=== PATIENT | female | born 1955 | race African-American/Black ===

== ENCOUNTER 2019-02-22 21:51 | Inpatient (IN) | payer OTHER ==
[~2019-02-22] VITALS: Ht 170.2 cm; Wt 53.1 kg
[2019-02-23 00:28] LABS: BASOPHILS % 0.7 % (0.0-2.0); EOSINOPHILS % 2.4 % (0.0-5.0); HEMATOCRIT. 31.5 % (36.0-48.0); HEMOGLOBIN. 10.5 g/dL (12.0-16.0); LYMPHOCYTES % 19.3 % (20.0-50.0); MEAN PLATELET VOLUME 7.9 fl (7.4-10.4); MONOCYTES % 12.4 % (2.0-8.0); NEUTROPHILS % 65.2 % (40.0-76.0); PLATELET 249 x1000/uL (130-400); RED CELL DISTRIBUTION WIDTH 18.7 % (11.6-14.6)
[2019-02-23 00:30] LABS: CHLORIDE 96 mEq/L (98-107)
[2019-02-23 08:00] VITALS: BP 168/104
[2019-02-23 10:00] VITALS: BP 168/104
[2019-02-23] MEDS ORDERED: NIFE90TA34 MT (10:32)
[2019-02-23] MEDS ORDERED: SUCR500T MT (10:32)
[2019-02-23] MEDS ORDERED: ACYC800T5 PO (10:32)
[2019-02-23] MEDS ORDERED: CARV12.545 MT (10:32)
[2019-02-23] MEDS ORDERED: PRED5DRO22 LEFTEYE (10:32)
[2019-02-23] MEDS ORDERED: ASPI-1158 MT (10:32)
[2019-02-23] MEDS ORDERED: FOLI0.4T2 MT (10:32)
[2019-02-23] MEDS ORDERED: TRIF7.5D5 LEFTEYE (10:32)
[2019-02-23 12:00] VITALS: BP 148/89
[2019-02-23] MEDS ORDERED: ACETAMINOPHEN 325MG TABLET PO PRN (15:00)
[2019-02-23] MEDS ORDERED: MAGNESIUM/ALUMINUM HYDROXIDE/SIMETHICONE 30ML UDC PO PRN (15:00)
[2019-02-23] MEDS ORDERED: DIPHENHYDRAMINE 50MG/ML VIAL IV PRN (15:00)
[2019-02-23] MEDS ORDERED: ACETAMINOPHEN 650MG SUPP PR PRN (15:00)
[2019-02-23] MEDS ORDERED: HYDROCODONE/ACETAMINOPHEN 5/325MG TABLET PO PRN (15:00)
[2019-02-23] MEDS ORDERED: LORAZEPAM 0.5MG TABLET PO PRN (15:00)
[2019-02-23] MEDS ORDERED: IPRATROPIUM/ALBUTEROL 0.5-3(2.5)MG/3ML NEB NEB PRN (15:00)
[2019-02-23] MEDS ORDERED: DOCUSATE SODIUM 100MG CAPSULE PO PRN (15:00)
[2019-02-23] MEDS ORDERED: GUAIFENESIN 200MG/10ML SUGAR FREE UDC PO PRN (15:00)
[2019-02-23] MEDS ORDERED: MECLIZINE 12.5MG TABLET PO PRN (15:30)
[2019-02-23] MEDS ORDERED: ONDANSETRON HCL 4MG/2ML INJ IV PRN (15:56)
[2019-02-23 16:00] VITALS: BP 163/104
[2019-02-23] MEDS ORDERED: NA PHOS,M-B/NA PHOS,DI-BA ENEMA 118ML PR PRN (16:00)
[2019-02-23 16:20] LABS: BG BASE EXCESS 3.7 mmol/L (-2.0-2.0); BG CARBOXYHEMOGLOBIN 0.3 % (0.5-1.5); BG DEOXYHEMOGLOBIN 3.5 % (0.0-5.0); BG FRACTION INSPIRED OXYGEN 21; BG HCO3 ACT 28.1 mmol/L (22.0-26.0); BG METHEMOGLOBIN 0.3 % (0.0-1.5); BG OXYGEN SATURATION 96.5 % (92.0-98.5); BG OXYHEMOGLOBIN 95.9 % (94.0-97.0); BG PH 7.444 (7.350-7.450); BG PO2 88.1 mmHg (75.0-100.0); BG SAMPLE SITE RIGHT RADIAL; BG TOTAL HEMOGLOBIN 10.2 g/dL (12.0-18.0); BG VENT MODE ROOM AIR
[2019-02-23 16:28] LABS: HEMATOCRIT. 29.8 % (36.0-48.0); MEAN CORPUSCULAR HEMOGLOBIN 30.6 pg (28.0-32.0); MEAN CORPUSCULAR VOLUME 90.9 fL (81.0-99.0); MEAN PLATELET VOLUME 7.4 fl (7.4-10.4); PLATELET 232 x1000/uL (130-400); RED BLOOD CELL COUNT 3.28 mill/uL (4.2-5.4)
[2019-02-23 16:34] LABS: PROTHROMBIN TIME 10.5 sec (9.6-11.0)
[2019-02-23 16:42] LABS: TOTAL IRON BINDING CAPACITY 159 ug/dL (250-450)
[2019-02-23] MEDS ORDERED: SUCROFERRIC OXYHYDROXIDE MT SCH (17:00)
[2019-02-23] MEDS ORDERED: TRIFLURIDINE LEFTEYE SCH (17:00)
[2019-02-23 17:40] LABS: PLATELET ESTIMATE NORMAL
[2019-02-23] MEDS ORDERED: ISOS60TA4 MT (18:08)
[2019-02-23] MEDS: PREDNISOLONE ACETATE 1% OPHTH DROPS 5ML LEFTEYE SCH ×2 (18:20→21:02)
[2019-02-23] MEDS: CARVEDILOL 12.5MG TABLET PO SCH (18:20)
[2019-02-23 20:00] VITALS: BP 170/98
[2019-02-23] MEDS: CLONIDINE 0.1MG TABLET PO PRN (21:03)
[2019-02-24] VITALS (8 sets, daily range): BP systolic 118–193; BP diastolic 86–115
[2019-02-24 01:12] LABS: CREATINE KINASE 69 IU/L (26-192)
[2019-02-24 01:13] LABS: CREATINE KINASE MB FRACTION < 1.0 ng/mL (0.5-3.6)
[2019-02-24] MEDS: CLONIDINE 0.1MG TABLET PO PRN ×2 (04:28→14:39)
[2019-02-24 07:57] LABS: HEMATOCRIT. 28.9 % (36.0-48.0); HEMOGLOBIN. 9.7 g/dL (12.0-16.0); MEAN CORPUSCULAR HEMOGLOBIN 30.3 pg (28.0-32.0); MEAN CORPUSCULAR VOLUME 90.4 fL (81.0-99.0); MEAN PLATELET VOLUME 7.7 fl (7.4-10.4); PLATELET 223 x1000/uL (130-400); RED BLOOD CELL COUNT 3.19 mill/uL (4.2-5.4); RED CELL DISTRIBUTION WIDTH 18.6 % (11.6-14.6)
[2019-02-24] MEDS ORDERED: MEDICATION NOT ON FORMULARY EA (Folic Acid 1 TAB) MT SCH (09:00)
[2019-02-24] MEDS ORDERED: ACYCLOVIR 800 MG PO SCH (09:00)
[2019-02-24 09:25] LABS: CREATINE KINASE 66 IU/L (26-192); LDL CHOLESTEROL 105 mg/dL (5-100)
[2019-02-24 09:26] LABS: HDL CHOLESTEROL 43 mg/dL (40-59); T4 FREE 1.18 ng/dL (0.76-1.46)
[2019-02-24 09:27] LABS: CREATINE KINASE MB FRACTION < 1.0 ng/mL (0.5-3.6)
[2019-02-24] MEDS: ACYCLOVIR 400 MG TABLET PO SCH (09:40)
[2019-02-24] MEDS: PREDNISOLONE ACETATE 1% OPHTH DROPS 5ML LEFTEYE SCH ×4 (09:41→21:05)
[2019-02-24] MEDS: SEVELAMER CARBONATE 800 MG TABLET PO SCH ×3 (09:42→18:48)
[2019-02-24] MEDS: FOLIC ACID 1MG TABLET PO SCH (09:42)
[2019-02-24] MEDS: ASPIRIN 81MG EC TABLET PO SCH (09:42)
[2019-02-24] MEDS: CARVEDILOL 12.5MG TABLET PO SCH ×2 (09:46→17:00)
[2019-02-24 11:31] LABS: PLATELET ESTIMATE NORMAL
[2019-02-24] MEDS ORDERED: LOSARTAN POTASSIUM 50 MG TABLET PO NR (14:45)
[2019-02-24 15:52] LABS: CLARITY URINE CLEAR (CLEAR); COLOR URINE YELLOW (YELLOW); KETONES URINE NEGATIVE (NEGATIVE); LEUKOCYTE ESTERASE URINE NEGATIVE (NEGATIVE); NITRITE URINE NEGATIVE (NEGATIVE); OCCULT BLOOD URINE TRACE (NEGATIVE); PROTEIN URINE 3+ (NEGATIVE); SPECIFIC GRAVITY URINE 1.007 (1.005-1.030); UROBILINOGEN URINE 0.2 E.U./dL (0.2-1.0)
[2019-02-24 16:29] LABS: *AMPHETAMINES SCREEN URINE NEGATIVE (NEGATIVE); *BARBITURATES SCREEN URINE NEGATIVE (NEGATIVE)
[2019-02-24 16:30] LABS: *BENZODIAZEPINES SCREEN URINE NEGATIVE (NEGATIVE); *COCAINE SCREEN URINE NEGATIVE (NEGATIVE); CANNABINOID URINE SCREEN NEGATIVE (NEGATIVE); METHADONE URINE SCREEN NEGATIVE (NEGATIVE); OPIATES URINE SCREEN NEGATIVE (NEGATIVE); PHENCYCLIDINE URINE SCREEN NEGATIVE (NEGATIVE)
[2019-02-24] MEDS ORDERED: MECLIZINE 12.5MG TABLET PO PRN (19:30)
[2019-02-25] VITALS (10 sets, daily range): BP systolic 156–199; BP diastolic 86–118
[2019-02-25] MEDS: CLONIDINE 0.1MG TABLET PO PRN ×2 (00:07→21:43)
[2019-02-25] MEDS: HYDRALAZINE 20MG/ML VIAL IV PRN ×3 (01:56→23:10)
[2019-02-25 05:07] LABS: HIV SCREEN 4G Non Reactive (Non Reactive)
[2019-02-25 07:24] LABS: HEMATOCRIT. 30.3 % (36.0-48.0); MEAN CORPUSCULAR HEMOGLOBIN 30.2 pg (28.0-32.0); MEAN CORPUSCULAR VOLUME 91.7 fL (81.0-99.0); PLATELET 181 x1000/uL (130-400); RED CELL DISTRIBUTION WIDTH 18.4 % (11.6-14.6)
[2019-02-25] MEDS: FOLIC ACID 1MG TABLET PO SCH (08:59)
[2019-02-25] MEDS: SEVELAMER CARBONATE 800 MG TABLET PO SCH ×3 (08:59→16:11)
[2019-02-25] MEDS: ACYCLOVIR 400 MG TABLET PO SCH (08:59)
[2019-02-25] MEDS: PREDNISOLONE ACETATE 1% OPHTH DROPS 5ML LEFTEYE SCH ×4 (08:59→21:43)
[2019-02-25] MEDS ORDERED: LOSARTAN POTASSIUM 50 MG TABLET PO SCH (09:00)
[2019-02-25] MEDS: ASPIRIN 81MG EC TABLET PO SCH (09:01)
[2019-02-25] MEDS: CARVEDILOL 12.5MG TABLET PO SCH ×2 (09:01→16:20)
[2019-02-25] MEDS ORDERED: SODIUM CHLORIDE 0.9% 250 ML IV ONE (11:15)
[2019-02-25 13:29] LABS: ATYPICAL LYMPHOCYTES 1
[2019-02-25 13:30] LABS: PLATELET ESTIMATE NORMAL
[2019-02-26] VITALS: BP 171/73
[2019-02-26 00:55] VITALS: BP 143/83
== END 2019-02-26 01:00 | DRG 70 ==
LOC: ER 21:51 → 7WST 02-23 04:47 → EDBEDREQTM 02-23 04:51 → EDBEDREQ 02-23 04:51 → ENRESERV 02-23 07:25
PROVIDERS: ADMIT Internal Medicine; ATTEND Internal Medicine
DX: G93.40 Encephalopathy, unspecified (principal); N18.6 End stage renal disease; E87.1 Hypo-osmolality and hyponatremia; I12.0 Hypertensive chronic kidney disease with stage 5 chronic kidney disease or end stage renal disease; G90.8 Other disorders of autonomic nervous system; I95.1 Orthostatic hypotension; D64.9 Anemia, unspecified; H54.62 Unqualified visual loss, left eye, normal vision right eye; Z85.841 Personal history of malignant neoplasm of brain; Z99.2 Dependence on renal dialysis; R27.0 Ataxia, unspecified; R73.9 Hyperglycemia, unspecified; E86.0 Dehydration
CPT/HCPCS: 36415; 36600; 70551; 71045; 80048; 80061; 80305; 81003; 82140; 82270; 82375; 82550; 82553; 82805; 83036; 83540; 83550; 83605; 84439; 84443; 84484; 86850; 86900; 87389; 93005; 93306; 93880; 93970; 95816; 97162; 99291; J0360

== ENCOUNTER 2019-07-12 11:37 | Inpatient (IN) | payer OTHER ==
[2019-07-12] VITALS (11 sets, daily range): BP systolic 118–139; BP diastolic 73–85
[~2019-07-12] VITALS: Ht 170.2 cm; Wt 58.5 kg
[~2019-07-12 11:37] MED LIST: ACYC800T5 PO; ASPI-1158 MT; CARV12.545 MT; FOLI0.4T2 MT; ISOS60TA4 MT; NIFE90TA60 MT; PRED5DRO22 LEFTEYE; SUCR500T MT; TRIF7.5D5 LEFTEYE
[2019-07-12 13:21] LABS: CHLORIDE 100 mEq/L (98-107)
[2019-07-12 13:34] LABS: D-DIMER 6.39 mg/L FEU (<0.50); PARTIAL THROMBOPLASTIN TIME 33.3 sec (23.4-31.0); PROTHROMBIN TIME 10.8 sec (9.6-11.0)
[2019-07-12 13:38] LABS: BASOPHILS % 0.8 % (0.0-2.0); EOSINOPHILS % 2.6 % (0.0-5.0); HEMATOCRIT. 24.8 % (36.0-48.0); HEMOGLOBIN. 8.2 g/dL (12.0-16.0); LYMPHOCYTES % 12.6 % (20.0-50.0); MEAN CORPUSCULAR HEMOGLOBIN 27.2 pg (28.0-32.0); MEAN CORPUSCULAR VOLUME 82.7 fL (81.0-99.0); MEAN PLATELET VOLUME 6.7 fl (7.4-10.4); MONOCYTES % 9.9 % (2.0-8.0); NEUTROPHILS % 74.1 % (40.0-76.0); PLATELET 583 x1000/uL (130-400); RED CELL DISTRIBUTION WIDTH 20.9 % (11.6-14.6)
[2019-07-12] MEDS ORDERED: LIDOCAINE HCL 1% 20ML VIAL (Pyxis) INJ ONE (13:47)
[2019-07-12] MEDS ORDERED: SODIUM BICARBONATE 4% (2.4MEQ) 5ML VIAL IV ONE (13:47)
[2019-07-12] MEDS ORDERED: CEFAZOLIN 1000MG PREMIX 50 ML IV ONE ×2 (14:09→14:30)
[2019-07-12] MEDS ORDERED: FENTANYL CITRATE/PF 50MCG/ML 2ML VIAL ONE (14:10)
[2019-07-12] MEDS ORDERED: FENTANYL CITRATE/PF 50MCG/ML 2ML VIAL IV ONE (14:30)
[2019-07-12] MEDS ORDERED: ASPIRIN 325MG EC TABLET PO ONE (15:30)
[2019-07-12] MEDS ORDERED: LORAZEPAM 0.5MG TABLET PO PRN (17:45)
[2019-07-12] MEDS ORDERED: ONDANSETRON HCL 4MG/2ML INJ IV PRN (17:45)
[2019-07-12] MEDS ORDERED: ACETAMINOPHEN 325MG TABLET PO PRN (17:45)
[2019-07-12] MEDS ORDERED: DOCUSATE SODIUM 100MG CAPSULE PO PRN (17:45)
[2019-07-12] MEDS ORDERED: CLONIDINE 0.1MG TABLET PO PRN (17:45)
[2019-07-12] MEDS ORDERED: IPRATROPIUM/ALBUTEROL 0.5-3(2.5)MG/3ML NEB NEB PRN (17:45)
[2019-07-12] MEDS ORDERED: GUAIFENESIN 200MG/10ML SUGAR FREE UDC PO PRN (17:45)
[2019-07-12] MEDS ORDERED: ACETAMINOPHEN 650MG SUPP PR PRN (17:45)
[2019-07-12] MEDS ORDERED: DIPHENHYDRAMINE 50MG/ML VIAL IV PRN (17:45)
[2019-07-12] MEDS ORDERED: MAGNESIUM/ALUMINUM HYDROXIDE/SIMETHICONE 30ML UDC PO PRN (17:45)
[2019-07-12] MEDS ORDERED: MORPHINE SULFATE 2 MG/ML CPJ (NOT FOR IM USE) IV PRN (17:45)
[2019-07-12] MEDS ORDERED: CARVEDILOL 12.5MG TABLET PO NR (21:45)
[2019-07-12] MEDS: ISOSORBIDE MONONITRATE 60MG TABLET SR 24HR PO SCH (23:50)
[2019-07-12] MEDS: HYDROCODONE/ACETAMINOPHEN 5/325MG TABLET PO PRN (23:51)
[2019-07-13] VITALS (10 sets, daily range): BP systolic 137–166; BP diastolic 76–95
[2019-07-13 00:59] LABS: CREATINE KINASE 45 IU/L (26-192)
[2019-07-13 01:00] LABS: CREATINE KINASE MB FRACTION < 1.0 ng/mL (0.5-3.6)
[2019-07-13 06:19] LABS: CHLORIDE 102 mEq/L (98-107)
[2019-07-13 06:37] LABS: CREATINE KINASE 31 IU/L (26-192)
[2019-07-13 06:38] LABS: CREATINE KINASE MB FRACTION < 1.0 ng/mL (0.5-3.6); LDL CHOLESTEROL 96 mg/dL (5-100); T4 FREE 1.12 ng/dL (0.76-1.46)
[2019-07-13 06:41] LABS: HDL CHOLESTEROL 38 mg/dL (40-59)
[2019-07-13 06:49] LABS: BASOPHILS % 0.7 % (0.0-2.0); EOSINOPHILS % 3.6 % (0.0-5.0); HEMATOCRIT. 21.9 % (36.0-48.0); HEMOGLOBIN. 7.1 g/dL (12.0-16.0); LYMPHOCYTES % 19.5 % (20.0-50.0); MEAN CORPUSCULAR HEMOGLOBIN 26.5 pg (28.0-32.0); MEAN CORPUSCULAR VOLUME 82.1 fL (81.0-99.0); MONOCYTES % 13.1 % (2.0-8.0); NEUTROPHILS % 63.1 % (40.0-76.0); PLATELET 505 x1000/uL (130-400); RED BLOOD CELL COUNT 2.67 mill/uL (4.2-5.4); RED CELL DISTRIBUTION WIDTH 21.5 % (11.6-14.6)
[2019-07-13] MEDS ORDERED: ASPIRIN 81MG EC TABLET PO SCH (09:00)
[2019-07-13] MEDS ORDERED: MEDICATION NOT ON FORMULARY EA (Folic Acid 1 TAB) MT SCH (09:00)
[2019-07-13] MEDS: CARVEDILOL 12.5MG TABLET PO SCH ×2 (09:40→21:25)
[2019-07-13] MEDS: NIFEDIPINE XL 90MG TAB PO SCH ×2 (10:03→21:24)
[2019-07-13] MEDS ORDERED: PNEUMOCOCCAL 23-VAL P-SAC VAC 0.5 ML IM ONE (12:00)
[2019-07-13 17:36] LABS: HEMOGLOBIN 6.4 g/dL (12.0-16.0)
[2019-07-13 17:37] LABS: HEMATOCRIT 19.7 % (36.0-48.0)
[2019-07-13 17:39] LABS: TOTAL IRON BINDING CAPACITY 125 ug/dL (250-450)
[2019-07-13] MEDS: PANTOPRAZOLE SODIUM 40 MG/VIAL IV SCH (18:40)
[2019-07-13] MEDS: IPRATROPIUM/ALBUTEROL 0.5-3(2.5)MG/3ML NEB HHN SCH (21:17)
[2019-07-13] MEDS: ISOSORBIDE MONONITRATE 60MG TABLET SR 24HR PO SCH (21:24)
[2019-07-13] MEDS: HYDROCODONE/ACETAMINOPHEN 5/325MG TABLET PO PRN (21:39)
[2019-07-14] VITALS: BP 143/90
[2019-07-14 00:23] LABS: HEMATOCRIT 22.1 % (36.0-48.0); HEMOGLOBIN 7.5 g/dL (12.0-16.0); MEAN CORPUSCULAR HEMOGLOBIN 27.7 pg (28.0-32.0); MEAN CORPUSCULAR VOLUME 81.6 fL (81.0-99.0); PLATELET 480 x1000/uL (130-400); RED BLOOD CELL COUNT 2.71 mill/uL (4.2-5.4); RED CELL DISTRIBUTION WIDTH 19.1 % (11.6-14.6)
[2019-07-14 00:30] LABS: INR 1.1; PROTHROMBIN TIME 11.4 sec (9.6-11.0)
[2019-07-14 04:00] VITALS: BP 130/81
[2019-07-14 06:02] LABS: EOSINOPHILS % 2.9 % (0.0-5.0); HEMATOCRIT. 23.6 % (36.0-48.0); HEMOGLOBIN. 7.9 g/dL (12.0-16.0); LYMPHOCYTES % 16.1 % (20.0-50.0); MEAN CORPUSCULAR HEMOGLOBIN 27.3 pg (28.0-32.0); MEAN CORPUSCULAR VOLUME 81.4 fL (81.0-99.0); MONOCYTES % 9.7 % (2.0-8.0); NEUTROPHILS % 70.3 % (40.0-76.0); PLATELET 503 x1000/uL (130-400); RED CELL DISTRIBUTION WIDTH 19.2 % (11.6-14.6)
[2019-07-14 08:05] VITALS: BP 130/75
[2019-07-14] MEDS: NIFEDIPINE XL 90MG TAB PO SCH ×2 (09:00→21:32)
[2019-07-14] MEDS: CARVEDILOL 12.5MG TABLET PO SCH ×2 (09:00→21:32)
[2019-07-14] MEDS: IPRATROPIUM/ALBUTEROL 0.5-3(2.5)MG/3ML NEB HHN SCH ×3 (09:07→16:17)
[2019-07-14] MEDS: PANTOPRAZOLE SODIUM 40 MG/VIAL IV SCH ×3 (09:42→21:31)
[2019-07-14 12:00] VITALS: BP 146/86
[2019-07-14] MEDS ORDERED: FENTANYL CITRATE/PF 50MCG/ML 2ML VIAL ONE ×2 (13:17→13:18)
[2019-07-14] MEDS ORDERED: MIDAZOLAM HCL 5 MG/5 ML VIAL ONE (13:17)
[2019-07-14] MEDS ORDERED: FENTANYL CITRATE/PF 50MCG/ML 2ML VIAL IV PRN (13:18)
[2019-07-14] MEDS ORDERED: MIDAZOLAM HCL 5 MG/5 ML VIAL IV PRN (13:19)
[2019-07-14 16:00] VITALS: BP 159/92
[2019-07-14 20:00] VITALS: BP 147/85
[2019-07-14] MEDS ORDERED: EPOETIN ALFA 10000UNITS/ML VIAL SUBCUT SCH (21:00)
[2019-07-14] MEDS: ISOSORBIDE MONONITRATE 60MG TABLET SR 24HR PO SCH (21:31)
[2019-07-14 21:54] LABS: HEMATOCRIT 25.2 % (36.0-48.0); HEMOGLOBIN 8.4 g/dL (12.0-16.0)
[2019-07-15] VITALS (8 sets, daily range): BP systolic 120–162; BP diastolic 77–98
[2019-07-15] MEDS: DEXT 5%/0.9% NACL 1,000 ML IV SCH (02:28)
[2019-07-15 07:08] LABS: BASOPHILS % 0.5 % (0.0-2.0); HEMATOCRIT. 22.8 % (36.0-48.0); HEMOGLOBIN. 7.4 g/dL (12.0-16.0); LYMPHOCYTES % 14.1 % (20.0-50.0); MEAN CORPUSCULAR VOLUME 82.9 fL (81.0-99.0); MEAN PLATELET VOLUME 6.8 fl (7.4-10.4); MONOCYTES % 9.9 % (2.0-8.0); NEUTROPHILS % 73.5 % (40.0-76.0); PLATELET 484 x1000/uL (130-400); RED BLOOD CELL COUNT 2.75 mill/uL (4.2-5.4); RED CELL DISTRIBUTION WIDTH 19.6 % (11.6-14.6)
[2019-07-15] MEDS: IPRATROPIUM/ALBUTEROL 0.5-3(2.5)MG/3ML NEB HHN SCH ×4 (09:00→21:00)
[2019-07-15] MEDS: NIFEDIPINE XL 90MG TAB PO SCH ×2 (09:09→21:39)
[2019-07-15] MEDS: PANTOPRAZOLE SODIUM 40 MG/VIAL IV SCH ×2 (09:09→17:19)
[2019-07-15] MEDS: CARVEDILOL 12.5MG TABLET PO SCH ×2 (09:10→21:40)
[2019-07-15] MEDS ORDERED: HEPARIN SODIUM 1,000 UNIT/1ML VIAL IV NR (20:15)
[2019-07-15] MEDS: ISOSORBIDE MONONITRATE 60MG TABLET SR 24HR PO SCH (21:40)
[2019-07-16] MEDS: DEXT 5%/0.9% NACL 1,000 ML IV SCH
[2019-07-16 03:58] VITALS: BP 118/73
[2019-07-16 08:00] VITALS: BP 142/72
[2019-07-16] MEDS: IPRATROPIUM/ALBUTEROL 0.5-3(2.5)MG/3ML NEB HHN SCH (08:37)
[2019-07-16] MEDS: CARVEDILOL 12.5MG TABLET PO SCH (08:53)
[2019-07-16] MEDS: NIFEDIPINE XL 90MG TAB PO SCH (08:53)
[2019-07-16] MEDS: PANTOPRAZOLE SODIUM 40 MG/VIAL IV SCH (08:53)
[2019-07-16 09:35] VITALS: BP 142/72
== END 2019-07-16 10:30 | disposition home or self-care (01) | DRG 314 ==
LOC: ER 11:37 → 6WST 16:15 → SUPCPDRO 16:24 → ENRESERV 21:06
PROVIDERS: ADMIT Internal Medicine; ATTEND Internal Medicine
PROC: 0J2SXYZ Change Other Device in Head and Neck Subcutaneous Tissue and Fascia, External Approach (ICD-10-PCS; 2019-07-12)
PROC: 30233N1 Transfusion of Nonautologous Red Blood Cells into Peripheral Vein, Percutaneous Approach (ICD-10-PCS; 2019-07-13)
PROC: 0DB78ZX Excision of Stomach, Pylorus, Via Natural or Artificial Opening Endoscopic, Diagnostic (ICD-10-PCS; principal; 2019-07-14)
DX: T82.41XA Breakdown (mechanical) of vascular dialysis catheter, initial encounter (principal); N18.6 End stage renal disease; I13.11 Hypertensive heart and chronic kidney disease without heart failure, with stage 5 chronic kidney disease, or end stage renal disease; E87.1 Hypo-osmolality and hyponatremia; K92.1 Melena; G81.94 Hemiplegia, unspecified affecting left nondominant side; I31.3 Pericardial effusion (noninflammatory); T82.848A Pain due to vascular prosthetic devices, implants and grafts, initial encounter; Z99.2 Dependence on renal dialysis; E88.09 Other disorders of plasma-protein metabolism, not elsewhere classified; Z85.89 Personal history of malignant neoplasm of other organs and systems; Z85.841 Personal history of malignant neoplasm of brain; K29.60 Other gastritis without bleeding; K44.9 Diaphragmatic hernia without obstruction or gangrene; N20.0 Calculus of kidney; D50.9 Iron deficiency anemia, unspecified; D25.9 Leiomyoma of uterus, unspecified; D63.8 Anemia in other chronic diseases classified elsewhere; Y71.2 Prosthetic and other implants, materials and accessory cardiovascular devices associated with adverse incidents; K76.89 Other specified diseases of liver
CPT/HCPCS: 36415; 71045; 72195; 74176; 77001; 78582; 80048; 80053; 80061; 82550; 82553; 82962; 83540; 83550; 83880; 84439; 84443; 84484; 85014; 85018; 85025; 85027; 85044; 85379; 85384; 86304; 86850; 86900; 86920; 88305; 88313; 90732; 93005; 93970; 94640; 97162; 99152; 99153; 99285; A9558; C1750; C1769; C9113; J0690; J0885; J1642; J1644; J2250; J3010; J3490; J7042; P9016; G0500

== ENCOUNTER 2019-09-19 13:52 | Inpatient (IN) | payer OTHER ==
[~2019-09-19] VITALS: Ht 170.2 cm; Wt 58.5 kg
[2019-09-19] MEDS ORDERED: ONDANSETRON HCL 4MG/2ML INJ IV STA (13:59)
[2019-09-19] MEDS ORDERED: LEVETIRACETAM 500MG PREMIX 100 ML IV ONE (14:00)
[2019-09-19 14:38] LABS: CHLORIDE 99 mEq/L (98-107)
[2019-09-19 14:39] LABS: PROTHROMBIN TIME 10.5 sec (9.6-11.0)
[2019-09-19 14:43] LABS: ETHANOL BLOOD < 10 mg/dL
[2019-09-19 15:02] LABS: BASOPHILS % 0.5 % (0.0-2.0); EOSINOPHILS % 2.5 % (0.0-5.0); HEMATOCRIT. 32.1 % (36.0-48.0); HEMOGLOBIN. 10.5 g/dL (12.0-16.0); LYMPHOCYTES % 12.1 % (20.0-50.0); MEAN CORPUSCULAR HEMOGLOBIN 27.2 pg (28.0-32.0); MEAN CORPUSCULAR VOLUME 82.9 fL (81.0-99.0); MEAN PLATELET VOLUME 6.7 fl (7.4-10.4); MONOCYTES % 11.1 % (2.0-8.0); NEUTROPHILS % 73.8 % (40.0-76.0); PLATELET 381 x1000/uL (130-400); RED BLOOD CELL COUNT 3.87 mill/uL (4.2-5.4); RED CELL DISTRIBUTION WIDTH 22.9 % (11.6-14.6)
[2019-09-19 15:24] LABS: PLATELET ESTIMATE NORMAL
[2019-09-19] MEDS ORDERED: ASPIRIN 325MG TABLET PO ONE (16:30)
[2019-09-19] MEDS ORDERED: CLONIDINE 0.2MG TABLET PO ONE (19:00)
[2019-09-19] MEDS: CLONIDINE 0.2MG TABLET PO SCH (22:00)
[2019-09-19] MEDS ORDERED: SODIUM POLYSTYRENE SULFONATE 15 G/60 ML BOT PO NR (22:00)
[2019-09-19] MEDS ORDERED: LABETALOL 5MG/ML SYR 20 MG/4 ML SYRINGE IV NR (22:00)
[2019-09-20] MEDS ORDERED: HYDRALAZINE HCL 50MG TABLET PO SCH (04:00)
[2019-09-20] MEDS ORDERED: MORPHINE SULFATE 4 MG/ML CPJ (NOT FOR IM USE) IV SCH (04:15)
[2019-09-20] MEDS ORDERED: CLONIDINE 0.2MG TABLET PO SCH (06:15)
[2019-09-20] MEDS ORDERED: LABETALOL 5MG/ML SYR 20 MG/4 ML SYRINGE IV SCH (06:15)
[2019-09-20 06:30] VITALS: BP 191/108
[2019-09-20] MEDS ORDERED: METOPROLOL TARTRATE 50MG TABLET PO SCH (08:00)
[2019-09-20 08:29] VITALS: BP 191/108
[2019-09-20 08:30] VITALS: BP 191/108
[2019-09-20] MEDS ORDERED: LORAZEPAM 2MG/ML CPJ IV PRN (11:30)
[2019-09-20] MEDS ORDERED: IPRATROPIUM/ALBUTEROL 0.5-3(2.5)MG/3ML NEB HHN PRN (11:30)
[2019-09-20] MEDS ORDERED: LEVETIRACETAM 500 MG in SODIUM CHLORIDE 0.9% 100 ML IV SCH (11:30)
[2019-09-20] MEDS ORDERED: HYDROCODONE/ACETAMINOPHEN 5/325MG TABLET PO PRN (11:30)
[2019-09-20] MEDS ORDERED: ONDANSETRON HCL 4MG/2ML INJ IV PRN ×2 (11:30)
[2019-09-20] MEDS ORDERED: ACETAMINOPHEN 325MG TABLET PO PRN (11:30)
[2019-09-20 12:00] VITALS: BP 206/105
[2019-09-20] MEDS: LEVETIRACETAM 500MG TABLET PO SCH ×2 (12:16→21:04)
[2019-09-20] MEDS: CLONIDINE 0.2MG TABLET PO SCH (12:16)
[2019-09-20] MEDS: ASPIRIN 81MG TABLET PO SCH (12:17)
[2019-09-20 16:00] VITALS: BP 145/79
[2019-09-20] MEDS ORDERED: ENOXAPARIN 40MG/0.4ML SYR SUBCUT SCH (16:00)
[2019-09-20] MEDS: ENOXAPARIN 30MG/0.3ML SYR SUBCUT SCH (17:29)
[2019-09-20] MEDS: LOSARTAN POTASSIUM 100 MG TABLET PO SCH (17:29)
[2019-09-20 20:00] VITALS: BP_SYST 127; BP_SYST 174; BP_SYST 205; BP_DIAS 103; BP_DIAS 112; BP_DIAS 86
[2019-09-20] MEDS: ATORVASTATIN CALCIUM 40MG TABLET PO SCH (21:04)
[2019-09-20] MEDS: HYDRALAZINE HCL 100MG TABLET PO SCH (21:05)
[2019-09-21 04:00] VITALS: BP 191/103
[2019-09-21] MEDS: HYDRALAZINE HCL 100MG TABLET PO SCH ×3 (04:31→20:58)
[2019-09-21 06:51] LABS: BASOPHILS % 0.4 % (0.0-2.0); EOSINOPHILS % 2.4 % (0.0-5.0); HEMATOCRIT. 30.4 % (36.0-48.0); HEMOGLOBIN. 9.9 g/dL (12.0-16.0); LYMPHOCYTES % 13.2 % (20.0-50.0); MEAN CORPUSCULAR HEMOGLOBIN 26.7 pg (28.0-32.0); MEAN PLATELET VOLUME 6.6 fl (7.4-10.4); MONOCYTES % 8.9 % (2.0-8.0); NEUTROPHILS % 75.1 % (40.0-76.0); PLATELET 360 x1000/uL (130-400)
[2019-09-21 07:14] LABS: CHLORIDE 106 mEq/L (98-107)
[2019-09-21 07:23] LABS: LDL CHOLESTEROL 91 mg/dL (5-100)
[2019-09-21 07:24] LABS: HDL CHOLESTEROL 38 mg/dL (40-59); T4 FREE 1.27 ng/dL (0.76-1.46)
[2019-09-21 08:00] VITALS: BP 132/86
[2019-09-21] MEDS: ASPIRIN 81MG TABLET PO SCH (08:59)
[2019-09-21] MEDS: LOSARTAN POTASSIUM 100 MG TABLET PO SCH (09:00)
[2019-09-21] MEDS: LEVETIRACETAM 500MG TABLET PO SCH ×2 (09:00→20:31)
[2019-09-21 12:00] VITALS: BP 152/88
[2019-09-21] MEDS ORDERED: HYDR100T26 MT (14:19)
[2019-09-21] MEDS ORDERED: KEPP500 MT (14:19)
[2019-09-21 16:30] VITALS: BP 148/90
[2019-09-21] MEDS: ENOXAPARIN 30MG/0.3ML SYR SUBCUT SCH (17:30)
[2019-09-21 18:39] VITALS: BP 146/90
[2019-09-21 20:00] VITALS: BP 158/86
[2019-09-21] MEDS: ATORVASTATIN CALCIUM 40MG TABLET PO SCH (20:31)
[2019-09-21] MEDS ORDERED: EPOETIN ALFA 4000UNITS/ML VIAL SUBCUT SCH (21:00)
== END 2019-09-21 21:20 | disposition home or self-care (01) | DRG 100 ==
LOC: ER 13:53 → MICUSO 16:25 → 6WST 09-20 09:20
PROVIDERS: ADMIT Internal Medicine; ATTEND Internal Medicine
PROC: 5A1D70Z Performance of Urinary Filtration, Intermittent, Less than 6 Hours Per Day (ICD-10-PCS; principal; 2019-09-20)
DX: G40.409 Other generalized epilepsy and epileptic syndromes, not intractable, without status epilepticus (principal); N18.6 End stage renal disease; E43 Unspecified severe protein-calorie malnutrition; I50.33 Acute on chronic diastolic (congestive) heart failure; E87.1 Hypo-osmolality and hyponatremia; G81.94 Hemiplegia, unspecified affecting left nondominant side; I13.2 Hypertensive heart and chronic kidney disease with heart failure and with stage 5 chronic kidney disease, or end stage renal disease; D63.8 Anemia in other chronic diseases classified elsewhere; E87.5 Hyperkalemia; Z99.2 Dependence on renal dialysis; E87.6 Hypokalemia; Z79.899 Other long term (current) drug therapy; Z79.82 Long term (current) use of aspirin; Z68.20 Body mass index [BMI] 20.0-20.9, adult; K29.70 Gastritis, unspecified, without bleeding
CPT/HCPCS: 36415; 70551; 71045; 80053; 80061; 80320; 82550; 82962; 84132; 84439; 84443; 84484; 85025; 92610; 93005; 96365; 97162; 99291; J0885; J1650; J1953; J2270; J2405; J3490; G0480

== ENCOUNTER 2020-03-26 14:17 | Inpatient (IN) | payer OTHER ==
[~2020-03-26] VITALS: Ht 170.2 cm; Wt 61.2 kg
[~2020-03-26 14:17] MED LIST changes: +KEPP500 MT; -NIFE90TA60 MT; +NIFE90TA60 PO
[2020-03-26] MEDS ORDERED: LEVETIRACETAM 1000MG PREMIX 100 ML IV ONE (14:45)
[2020-03-26] MEDS ORDERED: LORAZEPAM 2MG/ML CPJ IV ONE (14:45)
[2020-03-26 15:58] LABS: BASOPHILS % 0.3 % (0.0-2.0); EOSINOPHILS % 0.3 % (0.0-5.0); LYMPHOCYTES % 8.6 % (20.0-50.0); MEAN CORPUSCULAR HEMOGLOBIN 27.9 pg (28.0-32.0); MEAN CORPUSCULAR VOLUME 86.3 fL (81.0-99.0); MONOCYTES % 5.8 % (2.0-8.0); PLATELET 221 x1000/uL (130-400); RED CELL DISTRIBUTION WIDTH 19.3 % (11.6-14.6)
[2020-03-26 16:00] LABS: CHLORIDE 99 mEq/L (98-107)
[2020-03-26 16:04] LABS: ETHANOL BLOOD < 10 mg/dL
[2020-03-26 16:06] LABS: HEMATOCRIT. 14.7 % (36.0-48.0); HEMOGLOBIN. 4.7 g/dL (12.0-16.0)
[2020-03-26] MEDS ORDERED: LABETALOL 5MG/ML SYR 20 MG/4 ML SYRINGE IV ONE (20:15)
[2020-03-26] MEDS ORDERED: ACETAMINOPHEN 500MG TABLET PO ONE (21:15)
[2020-03-27 10:20] VITALS: BP 137/71
[2020-03-27 10:42] VITALS: BP 137/71
[2020-03-27] MEDS ORDERED: HYDROCODONE/ACETAMINOPHEN 5/325MG TABLET PO PRN (11:00)
[2020-03-27] MEDS ORDERED: LORAZEPAM 2MG/ML CPJ IV PRN (11:00)
[2020-03-27] MEDS ORDERED: MAGNESIUM/ALUMINUM HYDROXIDE/SIMETHICONE 30ML UDC PO PRN (11:00)
[2020-03-27] MEDS ORDERED: ACETAMINOPHEN 650MG SUPP PR PRN (11:00)
[2020-03-27] MEDS ORDERED: NA PHOS,M-B/NA PHOS,DI-BA ENEMA 118ML PR PRN (11:00)
[2020-03-27] MEDS ORDERED: DIPHENHYDRAMINE 50MG/ML VIAL IV PRN (11:00)
[2020-03-27] MEDS ORDERED: IPRATROPIUM/ALBUTEROL 0.5-3(2.5)MG/3ML NEB NEB PRN (11:00)
[2020-03-27] MEDS ORDERED: DEXT 5%/0.45% NACL 1000ML 1,000 ML IV SCH (11:00)
[2020-03-27] MEDS ORDERED: ONDANSETRON HCL 4MG/2ML INJ IV PRN (11:00)
[2020-03-27 12:00] VITALS: BP 143/80
[2020-03-27] MEDS: LEVETIRACETAM 500MG PREMIX 100 ML IV SCH ×2 (12:38→22:12)
[2020-03-27 16:00] VITALS: BP 149/87
[2020-03-27 16:06] LABS: BASOPHILS % 0.6 % (0.0-2.0); EOSINOPHILS % 0.5 % (0.0-5.0); LYMPHOCYTES % 11.9 % (20.0-50.0); MEAN CORPUSCULAR HEMOGLOBIN 29.4 pg (28.0-32.0); MEAN CORPUSCULAR VOLUME 85.8 fL (81.0-99.0); MEAN PLATELET VOLUME 7.5 fl (7.4-10.4); MONOCYTES % 7.3 % (2.0-8.0); NEUTROPHILS % 79.7 % (40.0-76.0); PLATELET 203 x1000/uL (130-400); RED BLOOD CELL COUNT 2.38 mill/uL (4.2-5.4)
[2020-03-27 16:15] LABS: INR 1.1; PROTHROMBIN TIME 11.4 sec (9.6-11.0)
[2020-03-27 16:22] LABS: HEMATOCRIT. 20.4 % (36.0-48.0)
[2020-03-27 16:26] LABS: CHLORIDE 102 mEq/L (98-107)
[2020-03-27 16:35] LABS: TOTAL IRON BINDING CAPACITY 123 ug/dL (250-450)
[2020-03-27 16:36] LABS: CREATINE KINASE 69 IU/L (26-192)
[2020-03-27 16:37] LABS: CREATINE KINASE MB FRACTION < 1.0 ng/mL (0.5-3.6)
[2020-03-27 16:44] LABS: FOLIC ACID (FOLATE) SERUM >20 ng/mL ng/mL (>5.38)
[2020-03-27 16:48] LABS: FERRITIN 583 ng/mL (10-291)
[2020-03-27 17:19] LABS: VITAMIN B12 SERUM 387 pg/mL (211-911)
[2020-03-27] MEDS: PIPERACILLIN/TAZOBACTAM 2.25 G in DEXTROSE 5% WATER 50 ML IV SCH ×2 (17:37→21:32)
[2020-03-27] MEDS: PANTOPRAZOLE SODIUM 40 MG/VIAL IV SCH (17:37)
[2020-03-27 20:00] VITALS: BP 150/82
[2020-03-28] VITALS (14 sets, daily range): BP systolic 124–184; BP diastolic 79–97
[2020-03-28 00:44] LABS: HEMATOCRIT 20.2 % (36.0-48.0); HEMOGLOBIN 6.8 g/dL (12.0-16.0)
[2020-03-28 00:53] LABS: CREATINE KINASE 64 IU/L (26-192)
[2020-03-28 00:54] LABS: CREATINE KINASE MB FRACTION < 1.0 ng/mL (0.5-3.6)
[2020-03-28] MEDS: PIPERACILLIN/TAZOBACTAM 2.25 G in DEXTROSE 5% WATER 50 ML IV SCH ×4 (04:19→23:48)
[2020-03-28 07:28] LABS: CHLORIDE 99 mEq/L (98-107)
[2020-03-28 07:30] LABS: BASOPHILS % 0.5 % (0.0-2.0); EOSINOPHILS % 1.6 % (0.0-5.0); HEMATOCRIT. 23.7 % (36.0-48.0); LYMPHOCYTES % 10.9 % (20.0-50.0); MEAN CORPUSCULAR HEMOGLOBIN 28.8 pg (28.0-32.0); MEAN PLATELET VOLUME 7.3 fl (7.4-10.4); MONOCYTES % 8.3 % (2.0-8.0); NEUTROPHILS % 78.7 % (40.0-76.0); PLATELET 206 x1000/uL (130-400); RED BLOOD CELL COUNT 2.79 mill/uL (4.2-5.4)
[2020-03-28 07:39] LABS: LDL CHOLESTEROL 47 mg/dL (5-100)
[2020-03-28 07:42] LABS: HDL CHOLESTEROL 34 mg/dL (40-59); T4 FREE 1.19 ng/dL (0.76-1.46)
[2020-03-28] MEDS: LEVETIRACETAM 500MG PREMIX 100 ML IV SCH ×2 (08:44→23:48)
[2020-03-28] MEDS: PANTOPRAZOLE SODIUM 40 MG/VIAL IV SCH ×2 (08:52→18:42)
[2020-03-28] MEDS: CLONIDINE 0.1MG TABLET PO PRN ×2 (15:25→21:54)
[2020-03-28] MEDS ORDERED: FENTANYL CITRATE/PF 50MCG/ML 2ML VIAL ONE (15:58)
[2020-03-28] MEDS ORDERED: MIDAZOLAM HCL 5 MG/5 ML VIAL ONE (15:58)
[2020-03-28] MEDS ORDERED: MIDAZOLAM HCL 5 MG/5 ML VIAL IV PRN (16:02)
[2020-03-28] MEDS ORDERED: FENTANYL CITRATE/PF 50MCG/ML 2ML VIAL IV PRN (16:03)
[2020-03-28 16:27] LABS: HEMATOCRIT 26.8 % (36.0-48.0); HEMOGLOBIN 8.8 g/dL (12.0-16.0)
[2020-03-28] MEDS ORDERED: EPOETIN ALFA 10000UNITS/ML VIAL SUBCUT SCH (21:00)
[2020-03-29] VITALS: BP 160/92
[2020-03-29] MEDS: PIPERACILLIN/TAZOBACTAM 2.25 G in DEXTROSE 5% WATER 50 ML IV SCH ×3 (03:49→15:19)
[2020-03-29 04:00] VITALS: BP 155/92
[2020-03-29 06:31] LABS: BASOPHILS % 0.7 % (0.0-2.0); EOSINOPHILS % 2.2 % (0.0-5.0); HEMATOCRIT. 24.3 % (36.0-48.0); HEMOGLOBIN. 8.3 g/dL (12.0-16.0); LYMPHOCYTES % 14.2 % (20.0-50.0); MEAN CORPUSCULAR HEMOGLOBIN 29.4 pg (28.0-32.0); MEAN CORPUSCULAR VOLUME 86.2 fL (81.0-99.0); MEAN PLATELET VOLUME 7.5 fl (7.4-10.4); MONOCYTES % 9.6 % (2.0-8.0); NEUTROPHILS % 73.3 % (40.0-76.0); PLATELET 219 x1000/uL (130-400); RED BLOOD CELL COUNT 2.82 mill/uL (4.2-5.4); RED CELL DISTRIBUTION WIDTH 16.6 % (11.6-14.6)
[2020-03-29 08:00] VITALS: BP 152/74
[2020-03-29] MEDS: PANTOPRAZOLE SODIUM 40 MG/VIAL IV SCH (08:45)
[2020-03-29] MEDS: LEVETIRACETAM 500MG PREMIX 100 ML IV SCH (08:46)
[2020-03-29] MEDS ORDERED: LACTULOSE 20G/30ML UDC PO NR (11:30)
[2020-03-29 12:00] VITALS: BP 136/83
[2020-03-29] MEDS ORDERED: KEPP500 MT (14:25)
[2020-03-29 16:03] VITALS: BP 136/83
== END 2020-03-29 18:00 | disposition home or self-care (01) | DRG 100 ==
LOC: ER 14:17 → 8WST 21:45 → EDBEDREQTM 21:50 → EDBEDREQ 21:50 → ENRESERV 03-27 09:09
PROVIDERS: ADMIT Internal Medicine; ATTEND Internal Medicine
PROC: 30243N1 Transfusion of Nonautologous Red Blood Cells into Central Vein, Percutaneous Approach (ICD-10-PCS; 2020-03-26)
PROC: 5A1D70Z Performance of Urinary Filtration, Intermittent, Less than 6 Hours Per Day (ICD-10-PCS; 2020-03-27)
PROC: 0DB68ZX Excision of Stomach, Via Natural or Artificial Opening Endoscopic, Diagnostic (ICD-10-PCS; principal; 2020-03-28)
DX: G40.409 Other generalized epilepsy and epileptic syndromes, not intractable, without status epilepticus (principal); N18.6 End stage renal disease; K29.71 Gastritis, unspecified, with bleeding; I13.11 Hypertensive heart and chronic kidney disease without heart failure, with stage 5 chronic kidney disease, or end stage renal disease; Z94.0 Kidney transplant status; K92.1 Melena; D50.9 Iron deficiency anemia, unspecified; D25.9 Leiomyoma of uterus, unspecified; K44.9 Diaphragmatic hernia without obstruction or gangrene; D49.6 Neoplasm of unspecified behavior of brain; K76.89 Other specified diseases of liver; F17.200 Nicotine dependence, unspecified, uncomplicated; G93.89 Other specified disorders of brain; Z20.828 Contact with and (suspected) exposure to other viral communicable diseases; Z79.899 Other long term (current) drug therapy; Z99.2 Dependence on renal dialysis; Z86.011 Personal history of benign neoplasm of the brain; Z88.5 Allergy status to narcotic agent; R50.9 Fever, unspecified
CPT/HCPCS: 36415; 70551; 71045; 80048; 80053; 80061; 80320; 82550; 82553; 82607; 82728; 82746; 83036; 83540; 83550; 84439; 84443; 84484; 85014; 85018; 85025; 86850; 86900; 86920; 87426; 87804; 88305; 93005; 93306; 93970; 96365; 97110; 97116; 97162; 99291; C9113; J0885; J1953; J2060; J2250; J2543; J3010; J3490; J7040; J7060; P9016; G0480

== ENCOUNTER 2022-05-19 13:58 | Emergency (ER) | payer OTHER ==
[~2022-05-19] VITALS: Ht 170.2 cm; Wt 64.0 kg
[~2022-05-19 13:58] MED LIST changes: -ASPI-1158 MT; -FOLI0.4T2 MT; +FOLI0.4T6 MT; -ISOS60TA4 MT
[2022-05-19] MEDS ORDERED: MORPHINE SULFATE 4 MG/ML CPJ (NOT FOR IM USE) IV STA (14:23)
[2022-05-19 14:59] LABS: BASOPHILS % 0.5 % (0.0-2.0); EOSINOPHILS % 1.5 % (0.0-5.0); HEMATOCRIT. 29.8 % (36.0-48.0); HEMOGLOBIN. 9.9 g/dL (12.0-16.0); MEAN CORPUSCULAR HEMOGLOBIN 31.7 pg (28.0-32.0); MEAN CORPUSCULAR VOLUME 95.1 fL (81.0-99.0); MEAN PLATELET VOLUME 7.7 fl (7.4-10.4); MONOCYTES % 10.4 % (2.0-8.0); NEUTROPHILS % 63.6 % (40.0-76.0); PLATELET 228 x1000/uL (130-400); RED BLOOD CELL COUNT 3.14 mill/uL (4.2-5.4); RED CELL DISTRIBUTION WIDTH 17.4 % (11.6-14.6)
[2022-05-19 15:19] LABS: CHLORIDE 96 mEq/L (98-107)
[2022-05-19 16:16] VITALS: BP 161/81
[2022-05-19] MEDS ORDERED: DOCU-150 MT (16:46)
== END 2022-05-19 17:17 | disposition home or self-care (01) ==
LOC: ER 13:58
DX: K59.00 Constipation, unspecified (principal); R10.32 Left lower quadrant pain; I12.0 Hypertensive chronic kidney disease with stage 5 chronic kidney disease or end stage renal disease; N18.6 End stage renal disease; Z86.73 Personal history of transient ischemic attack (TIA), and cerebral infarction without residual deficits; Z99.2 Dependence on renal dialysis; Z88.5 Allergy status to narcotic agent
CPT/HCPCS: 36415; 74176; 80053; 83690; 85025; 93005; 96374; 99285; J2270